=== PATIENT | male | born 1995 | race Two or more races ===

== ENCOUNTER → 2024-09-08 | Outpatient (CLI) | payer MEDICAID, SELFPAY ==
--- NOTE | 2024-09-08 13:30 | XR_ITS ---
Examination: CT abdomen and pelvis without contrast. Coronal 3-D reconstructions. Sagittal 2-D reconstructions. Date and time of exam:September 08, 2024 at 1406 hours INDICATIONS: Gross hematuria episodes beginning 4 months ago CTDI: vol (mGy): 4.87 DLP: (mGycm): 255 Technique: Axial images of the abdomen have been obtained, 3 mm slice thickness Intravenous contrast material has not been administered. Low dose protocols were performed. One or more of the following dose reduction techniques were used; automated exposure control, adjustment of the mA and/or KV according to patient size, use of iterative reconstruction technique. Findings: No focal liver or splenic lesions 4 mm gallstone No pancreatic or adrenal mass No renal or ureteral calculi, no hydronephrosis Aorta normal size No pericecal inflammatory change Normal appendix No bowel obstruction or diverticulitis Mild thickening of the urinary bladder wall up to 4 mm IMPRESSION: No renal or ureteral calculi, no hydronephrosis Mild cystitis pattern No prostatomegaly
== END | disposition home or self-care (01) ==
PROVIDERS: PCP Student in an Organized Health Care Education/Training Program; Referring Provider Student in an Organized Health Care Education/Training Program; Visit Provider Student in an Organized Health Care Education/Training Program
DX: R31.0 Gross hematuria (principal)
CPT/HCPCS: 74176